=== PATIENT | female | born 1995 | race Caucasian/White ===

== ENCOUNTER 2021-02-13 14:18 | Outpatient (CLI) | payer OTHER, SELFPAY ==
[2021-02-13 16:44] LABS: HIV 1/2 Ab P24 Ag Result Negative (Negative)
[2021-02-13 17:02] LABS: Hepatitis B Surface Antigen Negative (Negative)
[2021-02-13 17:19] LABS: Hepatitis C Virus Antibody Negative (Negative)
[2021-02-14 07:56] LABS: Rapid Plasma Reagin Non-Reactive (NonReactive)
[2021-02-16 15:07] LABS: HSV 1 IgM Screen Negative (Negative); HSV 2 IgM Screen Negative (Negative)
== END 2021-02-13 14:19 | disposition home or self-care (01) ==
LOC: ANHLAB 14:21
PROVIDERS: PCP Family Medicine; Visit Provider Obstetrics & Gynecology
DX: Z11.3 Encounter for screening for infections with a predominantly sexual mode of transmission (principal)
CPT/HCPCS: 36415; 86592; 86695; 86696; 86703; 86803; 87340; G0432